=== PATIENT | male | born 1955 | race Caucasian/White ===

== ENCOUNTER 2021-05-21 10:00 | Emergency (ER) | payer MEDICARE ==
--- NOTE | 2021-05-21 13:14 | EDM.PDOC ---
ED HPI GENERAL MEDICAL PROBLEM - General Chief Complaint: Lower Extremity Injury/Pain Stated Complaint: right foot pain Time Seen by Provider: 05/21/21 10:05 Source of Information: Reports: Patient History Limitations: Reports: No Limitations - History of Present Illness INITIAL COMMENTS - FREE TEXT/NARRATIVE: Pt. presents to ER with complaints of inflammation to forefoot/great toe area of R foot. Pt. has a longstanding history of gout in the past, states that the symptoms are similar. States that his pain is minimal unless he is ambulating. Denies any fever or chills. No recent trauma to the area. Pt. "doesn't doctor" and states that he uses mendes juice to keep from having flare-ups, which he is out of. He is resistive to doing lab work today. Denies using any OTC med ications. Onset Date: 05/20/21 Location: Reports: Lower Extremity, Right Quality: Reports: Ache Severity: Mild Right Foot Pain Score (Numeric/FACES): 5 - Related Data Allergies Allergy/AdvReac Type Severity Reaction Status Date / Time No Known Allergies Allergy Verified 05/21/21 10:04 Home Meds: Home Meds . [No Known Home Meds] 03/31/20 [History] Review of Systems - Review of Systems Review Of Systems: Comprehensive ROS is negative, except as noted in HPI. ED EXAM, GENERAL - Physical Exam Exam: See Below Exam Limited By: No Limitations General Appearance: Alert, WD/WN, No Apparent Distress Extremities: Limited Range of Motion, Redness, Other (mild redness/edema to R great toe. Minimal potentiation of discomfort with manipulation of the digit. Mild erythema noted to the area. No open skin lesions.) Course - Vital Signs Last Recorded V/S: Last Vital Signs Temp 36.3 C 05/21/21 10:00 Pulse 63 05/21/21 10:00 Resp 16 05/21/21 10:00 BP 121/73 05/21/21 10:00 Pulse Ox 100 05/21/21 10:00 Departure - Departure Time of Disposition: 10:45 Disposition: Home, Self-Care 01 Clinical Impression: Gout - Discharge Information Instructions: Gout, [id number], Prednisone tablets Referrals: Rachelle Diaz NP [Primary Care Provider] - Forms: ED Department Discharge Additional Instructions: Prednisone 10mg 4 tabs daily for 7 days total Increase consumption of water Tylenol and ibuprofen for discomfort Recheck in clinic in 10-14 days Sepsis Event Note (ED) - Evaluation Sepsis Screening Result: No Definite Risk - Focused Exam Vital Signs: Vital Signs Temp Pulse Resp BP Pulse Ox 05/21/21 10:00 36.3 C 63 16 121/73 100 - Problem List Review Problem List Initiated/Reviewed/Updated: Yes - Assessment/Plan Plan: Prednisone 10mg 4 tabs daily for 7 days total Increase consumption of water Tylenol and ibuprofen for discomfort Recheck in clinic in 10-14 days
== END 2021-05-21 10:35 | disposition home or self-care (01) ==
LOC: LL.ED 10:00
DX: M10.9 Gout, unspecified (principal)
CPT/HCPCS: 99283

== ENCOUNTER 2023-03-20 19:18 | Emergency (ER) | payer MEDICARE ==
[2023-03-20] MEDS: Tetracaine HCl/PF 0.5% 4 ML Bottle EYELF ONE (19:50)
[2023-03-20] MEDS: Acetaminophen 325 MG Tab PO ONE (20:32)
[2023-03-20] MEDS: traMADol 50 MG Tab PO ONE (20:32)
[2023-03-20] MEDS: Erythromycin Base 0.5% Ophth Oint 3.5 GM Tube EYELF ONE (20:33)
== END 2023-03-20 20:54 | disposition home or self-care (01) ==
LOC: LL.ED 19:18
DX: T15.02XA Foreign body in cornea, left eye, initial encounter (principal); I25.2 Old myocardial infarction; Z95.5 Presence of coronary angioplasty implant and graft
CPT/HCPCS: 65220; 99283; A9270-GY; J3490